=== PATIENT | female | born 1950 | race Caucasian/White ===

== ENCOUNTER → 2016-11-29 | Outpatient (CLI) | payer OTHER, BC ==
[2016-11-30 14:10] LABS: RHEUMATOID FACTOR <15 IU/mL (<15)
== END ==
LOC: LAB 11:09
PROVIDERS: ATTEND Obstetrics & Gynecology Gynecology
DX: M06.89 Other specified rheumatoid arthritis, multiple sites (principal)
CPT/HCPCS: 36415; 84550; 86038; 86200; 86431